=== PATIENT | male | born 1955 | race Caucasian/White ===

== ENCOUNTER 2017-04-13 08:37 | Emergency (ER) | payer OTHER ==
[2017-04-13 08:47] VITALS: TEMP 98.6; BMI 25.8
--- NOTE | 2017-04-13 08:57 | PDOC ---
History of Present Illness - General History Source: Patient Exam Limitations: No Limitations - History of Present Illness Initial Comments: 04/13/17 09:40 The patient is a 61 year old female with a significant PMH of HTN, CHF, GERD, enlarged prostate, and schizophrenia who presents to the emergency department with bilateral lower extremity swelling beginning approximately yesterday. The patient reports noticing the swelling when he was laying on the couch yesterday , prompting his visit. The patient also notes a rash bilaterally in the lower extremities and on his back. The patient reports using a new detergent recently to wash his clothes. The patient denies any sick contacts or recent travel. The patient denies chest pain, shortness of breath, headache and dizziness. Denies fever, chills, nausea, vomit, diarrhea and constipation. Denies dysuria, frequency, urgency and hematuria. Allergies: IV contrast Past surgical history:None reported. Social history: No reported cigarette, alcohol, or drug use. <Santi Diamond - Last Filed: 04/13/17 09:40> <Мария Ribeiro - Last Filed: 04/13/17 11:56> - General Chief Complaint: Edema Stated Complaint: SWOLLEN LEGS Past History <Santi Diamond - Last Filed: 04/13/17 09:40> - Past Medical History GI Disorders: Yes (gerd) HTN: Yes Psychiatric Problems: Yes (schizophrenia) Other medical history: bph - Immunization History Immunization Up to Date: Yes - Suicide/Smoking/Psychosocial Hx Smoking History: Never smoked Hx Alcohol Use: No Drug/Substance Use Hx: No <Мария Ribeiro - Last Filed: 04/13/17 11:56> - Past Medical History Allergies/Adverse Reactions: Allergies Allergy/AdvReac Type Severity Reaction Status Date / Time Iodinated Contrast- Oral and Allergy Verified 04/13/17 09:37 IV Dye iv contrast Allergy Severe Swelling Uncoded 04/13/17 08:41 Home Medications: Ambulatory Orders Clobetasol Prop 0.05% Top Cr [Temovate (Nf)] 30 gm NR BID #1 tube 04/13/17 Clonazepam [Klonopin] 1 mg PO HS PRN 04/13/17 Divalproex Sodium [Divalproex Sodium ER] 500 mg PO HS 04/13/17 Lisinopril [Zestril] 2.5 mg PO BID 04/13/17 Pantoprazole Sodium 40 mg PO DAILY 04/13/17 Tamsulosin HCl 0.4 mg PO HS 04/13/17 Review of Systems - Review of Systems Able to Perform ROS?: Yes Comments:: 04/13/17 09:40 GENERAL/CONSTITUTIONAL: No fever or chills. No weakness. HEAD, EYES, EARS, NOSE AND THROAT: No change in vision. No ear pain or discharge. No sore throat. CARDIOVASCULAR: No chest pain or shortness of breath. RESPIRATORY: No cough, wheezing, or hemoptysis. GASTROINTESTINAL: No nausea, vomiting, diarrhea or constipation. GENITOURINARY: No dysuria, frequency, or change in urination. MUSCULOSKELETAL: (+) Bilateral lower extremity swelling. No joint pain. No neck or back pain. SKIN: (+) Bilateral lower extremity rash with associated rash on back. NEUROLOGIC: No headache, vertigo, loss of consciousness, or change in strength/ sensation. ENDOCRINE: No increased thirst. No abnormal weight change. HEMATOLOGIC/LYMPHATIC: No anemia, easy bleeding, or history of blood clots. ALLERGIC/IMMUNOLOGIC: No hives or skin allergy. <Santi Diamond - Last Filed: 04/13/17 09:40> *Physical Exam - Vital Signs Last Vital Signs Temp Pulse Resp BP Pulse Ox 98.6 F 69 20 112/63 100 04/13/17 08:42 04/13/17 08:42 04/13/17 08:42 04/13/17 08:42 04/13/17 08:42 - Physical Exam Comments: 04/13/17 09:40 GENERAL: Awake, alert, and fully oriented, in no acute distress HEAD: No signs of trauma EYES: PERRLA, EOMI, sclera anicteric, conjunctiva clear ENT: Auricles normal inspection, hearing grossly normal, nares patent, oropharynx clear without exudates. Moist mucosa NECK: Normal ROM, supple, no lymphadenopathy, JVD, or masses LUNGS: Breath sounds equal, clear to auscultation bilaterally. No wheezes, and no crackles HEART: Regular rate and rhythm, normal S1 and S2, no murmurs, rubs or gallops ABDOMEN: Soft, nontender, normoactive bowel sounds. No guarding, no rebound. No masses EXTREMITIES: (+) Papular erythematous rash bilaterally in the lower extremities with scattered distribution to the back and calves. Normal range of motion, no edema. No clubbing or cyanosis. No cords, erythema, or tenderness NEUROLOGICAL: Cranial nerves II through XII grossly intact. Normal speech. SKIN: Warm, Dry, normal turgor, no rashes or lesions noted. <Santi Diamond - Last Filed: 04/13/17 09:40> - Vital Signs Last Vital Signs Temp Pulse Resp BP Pulse Ox 98.6 F 69 20 112/63 100 04/13/17 08:42 04/13/17 08:42 04/13/17 08:42 04/13/17 08:42 04/13/17 08:42 <Мария Ribeiro - Last Filed: 04/13/17 11:56> ED Treatment Course - LABORATORY CBC & Chemistry Diagram: 04/13/17 09:06 04/13/17 09:06 <Мария Ribeiro - Last Filed: 04/13/17 11:56> Medical Decision Making - Medical Decision Making 04/13/17 11:37 Pt presents to the ED complaining of bilateral leg swelling and pruritic rash to his legs and back. Denies chest complaints., Labs drawn to rule out renal failure or liver failure and are negative. Rash appears consistent with contact dermatitis. Patient endorses changing detergents recently. Will treat with clobetasol and discharge home. <Мария Ribeiro - Last Filed: 04/13/17 11:56> *DC/Admit/Observation/Transfer - Attestations Scribe Attestion: 04/13/17 09:40 Documentation prepared by Santi Diamond, acting as medical typist for Мария Ribeiro MD. <Santi Diamond - Last Filed: 04/13/17 09:40> - Discharge Dispostion Admit: No <Мария Ribeiro - Last Filed: 04/13/17 11:56> Diagnosis at time of Disposition: Leg swelling - Discharge Dispostion Disposition: HOME Condition at time of disposition: Good - Prescriptions Prescriptions: Clobetasol Prop 0.05% Top Cr [Temovate (Nf)] 30 gm NR BID #1 tube - Referrals Referrals: Francois Bautista MD [Staff Physician] - - Patient Instructions Printed Discharge Instructions: DI for Peripheral Edema -- Bilateral Additional Instructions: return to the ED for chest pain or shortness of breath, fever, leg pain, worsening leg swelling. Make an appt to see Dr. Bautista within one week.
[2017-04-13] MEDS ORDERED: diphenhydrAMINE HCL 25 MG CAPSULE (FP) PO ONE ×2 (09:36→09:52)
[2017-04-13 10:19] LABS: BASOPHIL 0.2 % (0-2.0); EOSINOPHIL 6.1 % (0-4.5); MCH 29.6 pg (25.7-33.7); MCHC 32.9 g/dl (32.0-35.9); MEAN CELL VOLUME 90.2 fl (80-96); MEAN PLT VOLUME 8.8 fl (7.5-11.1); NEUTROPHILS 58.5 % (42.8-82.8); PLATELET COUNT 207 K/MM3 (134-434); WHITE BLOOD COUNT 6.4 K/mm3 (4.0-10.0)
[2017-04-13 10:51] LABS: ALBUMIN 3.1 g/dl (3.4-5.0); ANION GAP 5 (8-16); BILIRUBIN,TOTAL 0.4 mg/dL (0.2-1.0); CO2 30 mmol/L (21-32); CREATININE 0.9 mg/dL (0.7-1.3); GLUCOSE,RANDOM 85 mg/dL (74-106); SGOT/AST 30 U/L (15-37); SGPT/ALT 70 U/L (12-78); TOT PROT 6.2 g/dl (6.4-8.2)
[2017-04-13 10:54] LABS: ALK PHOS 82 U/L (45-117)
[2017-04-13 12:23] VITALS: BP 102/75; PULSE 64
== END 2017-04-13 12:26 | disposition home or self-care (01) ==
LOC: JER 08:37
DX: R60.0 Localized edema (principal)
CPT/HCPCS: 36415; 80053; 83880; 85025; 99281-25

== ENCOUNTER 2021-06-25 15:35 | Emergency (ER) | payer BC, OTHER ==
[2021-06-25 15:49] VITALS: TEMP 99.3; BMI 30.4
[2021-06-25 18:47] LABS: BASO % 0.6 % (0-2.0); EOS % 3.2 % (0-4.5); HEMOGLOBIN 13.4 GM/dL (11.7-16.9); LYMPH % 25.8 % (8-40); MCH 30.1 pg (25.7-33.7); MCHC 33.6 g/dl (32.0-35.9); MEAN CELL VOLUME 89.6 fl (80-96); MEAN PLT VOLUME 8.4 fl (7.5-11.1); MONO % 11.6 % (3.8-10.2); NEUT % 58.8 % (42.8-82.8); PLATELET COUNT 277 10^3/uL (134-434); RBC 4.47 M/mm3 (4.00-5.60); RDW 13.7 % (11.9-15.9); WHITE BLOOD COUNT 7.6 K/mm3 (4.0-10.0)
[2021-06-25 18:57] LABS: PROTHROMBIN TIME (PATIENT) 11.7 SEC (9.7-13.0)
[2021-06-25 18:59] LABS: ACTIVATED PTT 35.8 SECONDS (25.2-36.5)
[2021-06-25 19:10] LABS: CHLORIDE 102 mmol/L (98-107); SODIUM 139 mmol/L (136-145)
[2021-06-25 19:14] LABS: BLOOD UREA NITROGEN 17.6 mg/dL (7-18)
[2021-06-25 19:15] LABS: ALBUMIN 3.8 g/dl (3.4-5.0); ANION GAP 5 MMOL/L (8-16); CO2 31 mmol/L (21-32); GLUCOSE,RANDOM 97 mg/dL (74-106)
[2021-06-25 19:17] LABS: SGOT/AST 52 U/L (15-37); SGPT/ALT 45 U/L (13-61)
[2021-06-25 19:19] LABS: BILIRUBIN,TOTAL 0.2 mg/dL (0.2-1); TOT PROT 7.3 g/dl (6.4-8.2)
[2021-06-25 19:20] LABS: ALK PHOS 82 U/L (45-117)
[2021-06-25 19:49] VITALS: BP 120/67; PULSE 66
[2021-06-25 20:52] LABS: BASO % 0.3 % (0-2.0); EOS % 3.1 % (0-4.5); HEMATOCRIT 42.4 % (35.4-49); HEMOGLOBIN 14.4 GM/dL (11.7-16.9); LYMPH % 26.7 % (8-40); MCH 30.9 pg (25.7-33.7); MCHC 33.9 g/dl (32.0-35.9); MEAN CELL VOLUME 91.1 fl (80-96); MEAN PLT VOLUME 8.3 fl (7.5-11.1); MONO % 12.7 % (3.8-10.2); NEUT % 57.2 % (42.8-82.8); PLATELET COUNT 295 10^3/uL (134-434); RBC 4.66 M/mm3 (4.00-5.60); RDW 13.6 % (11.9-15.9); WHITE BLOOD COUNT 7.1 K/mm3 (4.0-10.0)
== END 2021-06-25 21:27 | disposition home or self-care (01) ==
LOC: JER 15:35
DX: K64.9 Unspecified hemorrhoids (principal); K62.5 Hemorrhage of anus and rectum
CPT/HCPCS: 36415; 80053; 82272; 82550; 82553; 84484; 85025; 85610; 85730; 86850; 86900; 86901; 99284-25; C9803; U0003; U0005

== ENCOUNTER 2023-10-04 12:42 | Emergency (ER) | payer BC, OTHER ==
[2023-10-04 12:52] VITALS: BP 144/70; PULSE 77; RESP 18; TEMP 99.2; BMI 33.4
[2023-10-04 14:29] LABS: BASO % 0.9 % (0-2.0); EOS % 5.8 % (0-4.5); HEMATOCRIT 39.2 % (35.4-49); HEMOGLOBIN 12.9 GM/dL (11.7-16.9); LYMPH % 23.2 % (8-40); MCH 28.2 pg (25.7-33.7); MCHC 32.8 g/dl (32.0-35.9); MEAN CELL VOLUME 85.8 fl (80-96); MEAN PLT VOLUME 7.5 fl (7.5-11.1); MONO % 12.7 % (3.8-10.2); NEUT % 57.4 % (42.8-82.8); PLATELET COUNT 365 10^3/uL (134-434); RBC 4.57 M/mm3 (4.00-5.60); RDW 13.9 % (11.9-15.9); WHITE BLOOD COUNT 8.3 K/mm3 (4.0-10.0)
[2023-10-04 14:36] LABS: INR 1.07 (0.83-1.09); PROTHROMBIN TIME (PATIENT) 12.4 SEC (9.7-13.0)
[2023-10-04 14:39] LABS: ACTIVATED PTT 32.9 SECONDS (25.2-36.5)
[2023-10-04 14:43] LABS: URINE APPEARANCE CLEAR; URINE BILIRUBIN NEGATIVE (NEGATIVE); URINE COLOR YELLOW; URINE GLUCOSE (UA) NEGATIVE (NEGATIVE); URINE KETONE NEGATIVE (NEGATIVE); URINE LEUK ESTERASE NEGATIVE (NEGATIVE); URINE NITRITE NEGATIVE (NEGATIVE); URINE PROTEIN NEGATIVE (NEGATIVE); URINE UROBILINOGEN 0.2 mg/dL (0.2-1.0)
[2023-10-04 14:59] LABS: POTASSIUM 4.7 mmol/L (3.5-5.1)
[2023-10-04 15:01] LABS: CALCIUM 9.6 mg/dL (8.5-10.1)
[2023-10-04 15:02] LABS: ALBUMIN 3.5 g/dl (3.4-5.0)
[2023-10-04 15:05] LABS: CREATININE 1.6 mg/dL (0.55-1.3)
[2023-10-04 15:07] LABS: BILIRUBIN,TOTAL 0.2 mg/dL (0.2-1); TOT PROT 7.2 g/dl (6.4-8.2)
[2023-10-04] MEDS: LACTATED RINGERS SOLUTION 1000 ML INFUS.BAG IV ONE (15:46)
[2023-10-04] MEDS: OLANZapine 10 MG TABLET PO ONE (16:06)
== END 2023-10-04 16:23 | disposition home or self-care (01) ==
LOC: JER 12:42
DX: R41.82 Altered mental status, unspecified (principal); R46.89 Other symptoms and signs involving appearance and behavior; Z20.822 Contact with and (suspected) exposure to COVID-19
CPT/HCPCS: 0241U-QW; 36415; 70450-TC; 71045-TC-FY; 80053; 81003; 82962; 84443; 84484; 85025; 85610; 85730; 87086; 93005; 93010; 99285-25